=== PATIENT | female | born 1985 | race Caucasian/White ===

== ENCOUNTER 2023-10-05 08:55 | Emergency (ER) | payer OTHER ==
[2023-10-05 09:30] VITALS: BP 136/81; PULSE 91; RESP 18; TEMP 98.3
--- NOTE | 2023-10-05 10:24 | ED ---
Extremity Problem HPI - General Chief complaint: Extremity Problem,Nontraumatic Stated complaint: ankle swelling Time Seen by Provider: 10/05/23 10:21 Source: patient Mode of arrival: ambulatory Limitations: no limitations - History of Present Illness Initial comments: There is a 38 yr old female who is otherwise healthy presents emergency room for complaints of pain and swelling to the bilateral ankles. Patient states it started a week and half ago and is gradually worsened. She states the left medial ankle is much worse than the right. She denies any falls or injuries. She states there is swelling as well as some erythema to the medial aspect of the left ankle. Denies any history of DVT or PE. She denies any recent travel. Denies any change in diet, medications or activity levels.s Denies any mccormack e in diet, medications or activity levels. Any recent travel. Patient was seen on an urgent care for days ago. It was arthritis. She was not given any medications or tenderness at this time. - Related Data Previous Rx's Medication Instructions Recorded Cephalexin [Keflex] 500 mg PO Q6HR 10 Days #40 cap 10/05/23 Allergies Allergy/AdvReac Type Severity Reaction Status Date / Time No Known Allergies Allergy Verified 10/05/23 09:05 Review of Systems ROS Statement: Those systems with pertinent positive or pertinent negative responses have been documented in the HPI. ROS Other: All systems not noted in ROS Statement are negative. Past Medical History Past Medical History: Hyperlipidemia History of Any Multi-Drug Resistant Organisms: None Reported Past Surgical History: No Surgical Hx Reported Past Psychological History: Anxiety, Depression Smoking Status: Vaper Past Alcohol Use History: Daily Past Drug Use History: None Reported General Exam Limitations: no limitations General appearance: alert, in no apparent distress Head exam: Present: atraumatic Eye exam: Present: normal appearance, PERRL Neck exam: Present: full ROM Extremities exam: Present: full ROM, tenderness (mild tenderness), joint swelling (There is mild swelling, erythema and warmth of the medial aspect of the right ankle. palpable distal pulses. Negative Cortez test bilaterally. compartments are soft. no signs of a septic joint or compartment syndrome at this time.), other (Peripheral edema. The pretibial and dorsalis pedis lower extremities bilaterally. Worse of the left ankle. There is mild erythema and warmth that is worse over the medial aspect of the left ankle and wrapped circumferentially around to the lateral aspect. ) Neurological exam: Present: alert, oriented X3, CN II-XII intact Psychiatric exam: Present: normal affect, normal mood Course Vital Signs 10/05/23 09:02 Temperature 98.3 F Pulse Rate 91 Respiratory 18 Rate Blood Pressure 136/81 O2 Sat by Pulse 98 Oximetry - Reevaluation(s) Reevaluation #1: 10/05/2023 1314 The patient is well-appearing emergency room. Her labs show no leukocytosis with only mild elevated CRP. ESR is still pending. The ultrasound is negative for DVT and x-ray shows soft tissue swelling. There is no signs of a septic edward nt or compartment syndrome. We'll treat conservatively with Keflex for possible cellulitis however encouraged the patient to establish with a primary care physician for all lab work and possible referral to merchandising execution associate if her symptoms persist. We also discussed the use of ice and elevating the legs especially at the end of the day. Discussed signs return to the emergency room including but not limited to any worsening redness, warmth, swelling, development of fevers or new concerning symptoms. The patient and significant other at the bedside understand and agree to treatment discharge plan. Medical Decision Making - Medical Decision Making Was pt. sent in by a medical professional or institution (, PA, SYSTEMS ARCHITECTURE ANALYST, urgent care, hospital, or skilled nursing...) When possible be specific @ -[No] Did you speak to anyone other than the patient for history (EMS, parent, family, police, friend...)? What history was obtained from this source @ -Significant other at bedside Did you review nursing and triage notes (agree or disagree)? Why? @ -[I reviewed and agree with nursing and triage notes] Were old charts reviewed (outside hosp., previous admission, EMS record, old EKG, old radiological studies, urgent care reports/EKG's, skilled nursing records)? Report findings @ -[No old charts were reviewed] Differential Diagnosis (chest pain, altered mental status, abdominal pain women, abdominal pain men, vaginal bleeding, weakness, fever, dyspnea, syncope, headache, dizziness, GI bleed, back pain, seizure, CVA, palpatations, mental health, musculoskeletal)? @ -DVT, ankle sprain, cellulitis, inflammatory disorder, autoimmune disorder EKG interpreted by me (3pts min.). @ -[As above] X-rays interpreted by me (1pt min.). @ -X-ray shows soft tissue swelling without any fracture, deformities or other acute changes. CT interpreted by me (1pt min.). @ -[None done] U/S interpreted by me (1pt. min.). @ -Ultrasound is negative for any DVT. What testing was considered but not performed or refused? (CT, X-rays, U/S, labs)? Why? @ -[None] What meds were considered but not given or refused? Why? @ -[None] Did you discuss the management of the patient with other professionals (professionals i.e. , PA, SYSTEMS ARCHITECTURE ANALYST, lab, RT, psych nurse, dialysis social worker, maltster, teacher, chief risk officer, special education case manager)? Give summary @ -[No] Was smoking cessation discussed for >3mins.? @ -[No] Was critical care preformed (if so, how long)? @ -[No] Were there social determinants of health that impacted care today? How? (Homelessness, low income, unemployed, alcoholism, drug addiction, transportation, low edu. Level, literacy, decrease access to med. care, [facility], rehab)? @ -[No] Was there de-escalation of care discussed even if they declined (Discuss DNR or withdrawal of care, Hospice)? DNR status @ -[No] What co-morbidities impacted this encounter? (DM, HTN, Smoking, COPD, CAD, Cancer, CVA, ARF, Chemo, Hep., AIDS, mental health diagnosis, sleep apnea, morbid obesity)? @ -[None] Was patient admitted / discharged? Hospital course, mention meds given and route, prescriptions, significant lab abnormalities, going to OR and other pertinent info. @ -The patient is well-appearing and emergency room. Does not require hospitalization. She will be treated with anti-inflammatories, ice elevation and Keflex for possible early cellulitis and was encouraged to follow up with outpatient medicine for further testing and evaluation Un symptoms persist. She understands signs return to the emergency room.diagnosed new problem with uncertain prognosis? @ -[No] Drug Therapy requiring intensive monitoring for toxicity (Heparin, Nitro, Insulin, Cardizem)? @ -[No] Were any procedures done? @ -[No] Diagnosis/symptom? @ -[Peripheral edema, suspected early cellulitis Acute, or Chronic, or Acute on Chronic? @ -[Acute Uncomplicated (without systemic symptoms) or Complicated (systemic symptoms)? @ -[uncomplicated Side effects of treatment? @ -[No] Exacerbation, Progression, or Severe Exacerbation? @ -[No] Poses a threat to life or bodily function? How? (Chest pain, [place], [place], pneumonia, PE, COPD, DKA, ARF, appy, cholecystitis, CVA, Diverticulitis, Homicidal, Suicidal, threat to staff... and all critical care pts) @ -[No] - Lab Data Result diagrams: 10/05/23 11:24 10/05/23 11:24 Lab Results 10/05/23 10/05/23 Range/Units 11:24 11:24 WBC 9.3 (3.8-10.6) k/uL RBC 4.94 (3.80-5.40) m/uL Hgb 13.7 (11.4-16.0) gm/dL Hct 39.8 (34.0-46.0) % MCV 80.7 (80.0-100.0) fL MCH 27.8 (25.0-35.0) pg MCHC 34.5 (31.0-37.0) g/dL RDW 12.1 (11.5-15.5) % Plt Count 391 (150-450) k/uL MPV 7.9 Neutrophils % 63 % Lymphocytes % 23 % Monocytes % 7 % Eosinophils % 3 % Basophils % 1 % Neutrophils # 5.9 (1.3-7.7) k/uL Lymphocytes # 2.2 (1.0-4.8) k/uL Monocytes # 0.6 (0-1.0) k/uL Eosinophils # 0.3 (0-0.7) k/uL Basophils # 0.1 (0-0.2) k/uL ESR 37 H (0-20) mm/Hr Sodium 139 (137-145) mmol/L Potassium 4.0 (3.5-5.1) mmol/L Chloride 104 (98-107) mmol/L Carbon Dioxide 26 (22-30) mmol/L Anion Gap 9 mmol/L BUN 8 (7-17) mg/dL Creatinine 0.66 (0.52-1.04) mg/dL Est GFR (CKD-EPI)AfAm >90 (>60 ml/min/1.73 sqM) Est GFR (CKD-EPI)NonAf >90 (>60 ml/min/1.73 sqM) Glucose 94 (74-99) mg/dL Calcium 9.8 (8.4-10.2) mg/dL Total Bilirubin 0.5 (0.2-1.3) mg/dL AST 23 (14-36) U/L ALT 14 (4-34) U/L Alkaline Phosphatase 56 (38-126) U/L C-Reactive Protein 3.3 H (<1.0) mg/dL Total Protein 7.3 (6.3-8.2) g/dL Albumin 4.3 (3.5-5.0) g/dL HCG, Quant <2.4 mIU/mL - Radiology Data Radiology results: report reviewed, image reviewed Disposition Clinical Impression: Ankle cellulitis, 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 Disposition: HOME SELF-CARE Condition: Good Instructions (If sedation given, give patient instructions): Cephalexin (By mouth), Cellulitis (ED), Leg Edema (ED) Prescriptions: Cephalexin [Keflex] 500 mg PO Q6HR 10 Days #40 cap Is patient prescribed a controlled substance at d/c from ED?: No When asked, does pt state using other controlled substances?: No If prescribed controlled substance>3 days was MAPS reviewed?: No If opioid is for acute pain is fill amount 7 days or less?: No Referrals: None,Stated [Primary Care Provider] - 1-2 days Nancy Fernandez MD [STAFF PHYSICIAN] - 1-2 days (Rheumatology referral ) Joey Navarro MD [STAFF PHYSICIAN] - 1-2 days (PCP referral) Andi Navarro MD [REFERRING] - 1-2 days (PCP referral) Lucy Munguia DO [REFERRING] - 1-2 days (PCP referral) Time of Disposition: 13:18
[2023-10-05 11:35] LABS: Basophils # (A) 0.1 k/uL (0-0.2); Basophils % (A) 1 %; Eosinophils # (A) 0.3 k/uL (0-0.7); Eosinophils % (A) 3 %; HCT 39.8 % (34.0-46.0); HGB 13.7 gm/dL (11.4-16.0); Lymphocytes # (A) 2.2 k/uL (1.0-4.8); Lymphocytes % (A) 23 %; MCH 27.8 pg (25.0-35.0); MCHC 34.5 g/dL (31.0-37.0); MCV 80.7 fL (80.0-100.0); Mean Platelet Volume 7.9; Monocytes # (A) 0.6 k/uL (0-1.0); Monocytes % (A) 7 %; Neutrophils # (A) 5.9 k/uL (1.3-7.7); Neutrophils % (A) 63 %; Platelet Count 391 k/uL (150-450); RBC 4.94 m/uL (3.80-5.40); RDW 12.1 % (11.5-15.5); WBC 9.3 k/uL (3.8-10.6)
[2023-10-05 11:50] LABS: ALT 14 U/L (4-34); AST 23 U/L (14-36); African American GFR (CKD) >90 (>60 ml/min/1.73 sqM); Albumin 4.3 g/dL (3.5-5.0); Alkaline Phosphatase 56 U/L (38-126); Anion Gap 9 mmol/L; Blood Urea Nitrogen 8 mg/dL (7-17); C Reactive Protein 3.3 mg/dL (<1.0); Calcium 9.8 mg/dL (8.4-10.2); Carbon Dioxide 26 mmol/L (22-30); Chloride 104 mmol/L (98-107); Glucose 94 mg/dL (74-99); Non-African American GFR(CKD) >90 (>60 ml/min/1.73 sqM); Sodium 139 mmol/L (137-145); Total Bilirubin 0.5 mg/dL (0.2-1.3); Total Protein 7.3 g/dL (6.3-8.2)
[2023-10-05 12:03] LABS: HCG,Quantitative Serum <2.4 mIU/mL
--- NOTE | 2023-10-05 12:21 | US ---
EXAMINATION TYPE: US venous doppler duplex LE DATE OF EXAM: 10/05/2023 12:09 PM COMPARISON: None available. CLINICAL INDICATION: Female, 38 years old with history of pain, redness and swelling; Left ankle swel ling. No trauma. No recent car rides or trips. SIDE PERFORMED: Bilateral TECHNIQUE: The lower extremity deep venous system is examined utilizing real time linear array sonog alex with graded compression, doppler sonography and color-flow sonography. VESSELS IMAGED: Common Femoral Vein Deep Femoral Vein Greater Saphenous Vein * Femoral Vein Popliteal Vein Small Saphenous Vein * Proximal Calf Veins (* superficial vessels) Right Leg: Negative for DVT Left Leg: Negative for DVT IMPRESSION: No evidence of deep venous thrombosis.
--- NOTE | 2023-10-05 12:56 | XR ---
EXAMINATION TYPE: XR ankle complete 3 views bilateral DATE OF EXAM: 10/05/2023 Comparison: None Clinical History: 38-year-old female bilateral pain, redness, swelling Findings: Generalized soft tissue swelling on both sides. Ankle mortises sees are congruent with preservation o f the distal tibiofibular overlap. Talar domes are intact. No acute fracture, subluxation, dislocatio n seen. Small delineation to the Achilles tendons. Subtalar joints are aligned. Impression: Generalized soft tissue swelling. No acute osseous abnormality seen on either side.
[2023-10-05 16:29] LABS: Erythrocyte Sedimentation Rate 37 mm/Hr (0-20)
== END 2023-10-05 13:45 | disposition home or self-care (01) ==
LOC: EC 08:55
DX: I87.2 Venous insufficiency (chronic) (peripheral) (principal); L03.115 Cellulitis of right lower limb; L03.116 Cellulitis of left lower limb; F17.290 Nicotine dependence, other tobacco product, uncomplicated
CPT/HCPCS: 36415; 80053; 84702; 85025; 85652; 86140; 93970; 99284